=== PATIENT | male | born 1940 | race Caucasian/White ===

== ENCOUNTER 2020-08-22 07:18 | Outpatient (CLI) | payer MEDICARE, OTHER, SELFPAY ==
--- NOTE | 2020-08-22 07:44 | XR_ITS ---
WS: [id number] XR chest 2V* [id number] REASON FOR EXAM: CHRONIC BRONCHITIS FINDINGS: Moderately ectatic and tortuous thoracic aorta. Normal heart size. No active pulmonary parenchymal pleural disease. Degenerative spondylosis in the mid thoracic spine. XR/XR chest 2V* [id number] IMPRESSION: No acute chest abnormality.
== END 2020-08-22 07:19 | disposition home or self-care (01) ==
LOC: RAD 07:37
PROVIDERS: PCP Electrodiagnostic Medicine; Visit Provider Electrodiagnostic Medicine
DX: J42 Unspecified chronic bronchitis (principal)
CPT/HCPCS: 71046

== ENCOUNTER 2020-09-26 07:05 | Outpatient (CLI) | payer MEDICARE, OTHER, SELFPAY ==
--- NOTE | 2020-09-26 07:44 | US_ITS ---
WS: [id number] THYROID ULTRASOUND REASON FOR EXAM: GRAVE'S DZ/CHRONIC HOARSENESS/HYPOTHYROIDISM TECHNIQUE: Grayscale and Doppler ultrasound examination of the thyroid gland. FINDINGS: Both lobes of the thyroid are extremely small and heterogeneous without focal lesion. RIGHT: Right thyroid gland measures 3.5 cm x 1.5 cm x 0.9 cm. Right thyroid volume equals 2.6 ccm3. LEFT: Left thyroid gland measures 2.3 cm x 1.3 cm x 1.0 cm. Left thyroid volume equals 1.5 ccm3. Thyroid isthmus: 0.2 mm. Several lymph nodes are identified within the neck. None of these nodes measures more than a centimet er in short or long axis. Several of them demonstrate sinus fat. US/US thyroid [id number] IMPRESSION: The thyroid gland appearance is not that of Graves' disease unless posttreatmen t by radionuclide. The appearance can also be seen post Preeti's thyroiditis . The lymph nodes are nonspecific, most likely old reactive nodes.
== END 2020-09-26 07:06 | disposition home or self-care (01) ==
LOC: US 07:06
PROVIDERS: PCP Electrodiagnostic Medicine; Visit Provider Electrodiagnostic Medicine
DX: E05.00 Thyrotoxicosis with diffuse goiter without thyrotoxic crisis or storm (principal); R49.0 Dysphonia; E03.9 Hypothyroidism, unspecified
CPT/HCPCS: 76536

== ENCOUNTER 2021-05-10 16:07 | Outpatient (CLI) | payer MEDICARE, OTHER, SELFPAY ==
--- NOTE | 2021-05-10 | XR_ITS ---
WS: [id number] Chest 2 views, 05/10/2021 Clinical Data: DYSPNEA Comparison: PA and lateral chest, 08/22/2020. Findings: No nodules, masses or effusions are seen. The heart is normal. The pulmonary vascularity is not increased. No pneumonia or pneumothorax is seen. The aortic arch and descending aorta show calci fication and tortuosity. XR/XR chest 2V* [id number] Impression: Atherosclerosis.
== END 2021-05-10 16:08 | disposition home or self-care (01) ==
LOC: RAD 16:15
PROVIDERS: PCP Electrodiagnostic Medicine; Visit Provider Electrodiagnostic Medicine
DX: R06.00 Dyspnea, unspecified (principal); I70.90 Unspecified atherosclerosis
CPT/HCPCS: 71046

== ENCOUNTER → 2021-08-03 11:40 | Outpatient (BNVA) | payer MEDICARE, OTHER, SELFPAY | PROVIDERS: PCP Electrodiagnostic Medicine; Visit Provider Electrodiagnostic Medicine | DX: Z01.812 Encounter for preprocedural laboratory examination (principal); Z20.822 Contact with and (suspected) exposure to COVID-19 | CPT/HCPCS: 87635 ==

== ENCOUNTER 2021-08-09 07:22 | Outpatient (CLI) | payer MEDICARE, OTHER, SELFPAY ==
--- NOTE | 2021-08-09 09:30 | PFTS_ITS ---
Date of Study:08/09/21 Date of Dictation: MECHANICS: Forced vital capacity (FVC) is normal. Forced expiratory volume in one second (FEV1) is normal. FEV1/FVC is normal. FLOW VOLUME LOOP: Normal. LUNG VOLUMES: Total lung capacity (TLC) is normal. Residual volume (RV) is normal. DIFFUSING CAPACITY FOR CARBON MONOXIDE: Normal. INTERPRETATION: The pulmonary function tests are normal. MTDD
== END 2021-08-09 07:23 | disposition home or self-care (01) ==
PROVIDERS: PCP Electrodiagnostic Medicine; Visit Provider Electrodiagnostic Medicine
DX: R06.00 Dyspnea, unspecified (principal); R49.0 Dysphonia; J42 Unspecified chronic bronchitis; E03.9 Hypothyroidism, unspecified
CPT/HCPCS: 94010; 94726; 94729

== ENCOUNTER 2021-08-14 10:09 | Outpatient (CLI) | payer MEDICARE, OTHER, SELFPAY ==
--- NOTE | 2021-08-14 10:16 | XR_ITS ---
WS: [id number] FOOT LEFT TECHNIQUE: 3 views of the left foot CLINICAL INFORMATION: FOOT PAIN,LEFT COMPARISON: None. FINDINGS: No evidence of acute fracture or dislocation. Normal tarsal metatarsal alignment. Normal calcaneus. N ormal visualized talar dome. Small plantar calcaneal spur. Osteopenia. Vascular calcification. XR/XR foot LT min 3V* [id number] IMPRESSION: Osteopenia. No visualized fractures.
== END 2021-08-14 10:10 | disposition home or self-care (01) ==
PROVIDERS: PCP Electrodiagnostic Medicine; Visit Provider Electrodiagnostic Medicine
DX: M79.672 Pain in left foot (principal); M85.872 Other specified disorders of bone density and structure, left ankle and foot
CPT/HCPCS: 73630

== ENCOUNTER 2021-09-13 14:14 | Outpatient (CLI) | payer MEDICARE, OTHER, SELFPAY ==
--- NOTE | 2021-09-13 | CT_ITS ---
WS: [id number] CT CHEST TECHNIQUE: Noncontrast CT of the chest with coronal and sagittal reformatted images. CLINICAL INFORMATION: DYSPNEA, HOARSENESS COMPARISON: None. DLP: 897.[address] scans at [facility] use at least one of these dose optimization techniques: automated e xposure control; mA and/or kV adjustment per patient size (includes targeted exams where dose is matc hed to clinical indication); or iterative reconstruction. FINDINGS: Lungs are well aerated. No acute pulmonary infiltrates. No focal pneumonia or pleural fluid. Tiny non calcified nodule left upper lobe measuring 3 mm. Tiny noncalcified nodule right upper lobe measuring 2 mm. 2 mm noncalcified nodule right middle lobe. Normal caliber thoracic aorta. Aortic calcification. Calcified right hilar nodes. No mediastinal or h ilar lymphadenopathy. Adrenal glands are normal. Fatty atrophy of the pancreas. Normal GE junction. Hypertrophic changes th oracic spine. CT/CT chest wo con [id number] IMPRESSION: 1. A few tiny noncalcified pulmonary nodules largest in the left upper lobe me asuring 3 mm. Recommend 12 month follow-up. 2. No acute pulmonary infiltrates. No focal pneumonia or pleural fluid. 3. No mediastinal or hilar lymphadenopathy. 4. No other significant findings.
== END 2021-09-13 14:15 | disposition home or self-care (01) ==
PROVIDERS: PCP Electrodiagnostic Medicine; Visit Provider Electrodiagnostic Medicine
DX: R06.02 Shortness of breath (principal); R49.0 Dysphonia; J42 Unspecified chronic bronchitis; E03.9 Hypothyroidism, unspecified; R91.8 Other nonspecific abnormal finding of lung field
CPT/HCPCS: 71250

== ENCOUNTER 2021-10-02 14:21 | Emergency (ER) | payer MEDICARE, OTHER, SELFPAY ==
--- NOTE | 2021-10-02 14:36 | W.ED.NEUROSD ---
HPI - Neuro Symptoms/Deficit General: Chief Complaint: Neuro Symptoms/Deficit Stated Complaint: Neuro sx: Diff speech, sent by Dr Velasquez Time Seen by Provider: 10/02/21 14:35 History of Present Illness: HPI Narrative: Mr. Inman is an 81-year-old gentleman with significant past medical history of hypertension, hyperlipidemia, hypothyroidism presents emergency department due to strokelike symptoms which have now nearly resolved. He has felt his baseline health and had sudden onset of speech difficulty which he describes as difficulty getting the words out approximately 1 hour prior to coming to the emergency department. At that time he was sitting at the table, there was no specific precipitating event. He denies other symptoms including headache or other neurologic changes. This was moderate to severe in intensity. He reports that his symptoms of about 85% improved. Review of Systems General: Reports: 10 or more systems reviewed and unremarkable except in HPI and below Physical Exam Narrative: EXAM NARRATIVE: GENERAL/CONSTITUTIONAL - well-appearing. No acute distress. Eyes - PERRL, no conjunctival injection ENMT - Atraumatic external nose and ears. Moist mucous membranes NECK - supple. trachea midline CARDIOVASCULAR - regular rate and rhythm. RESPIRATORY -clear to auscultation bilaterally. ABDOMEN/GI - Nontender/Nondistended. MSK - Extremities without obvious deformity or tenderness to palpation SKIN - Warm, Dry NEURO - alert and appropriately oriented. Cranial nerves II through XII intact. No appreciable speech abnormality. Strength and sensation intact. Moves all extremities equally. NIHSS 0 PSYCH - Appropriate mood and affect Course ED course: - Patient was seen and evaluated by me at bedside - Patient placed on cardiac monitors, IV access obtained - Initial evaluation notable for no acute distress, nontoxic appearance. NIHSS 0 - Labs notable for no acute abnormality to explain patient's symptoms. - Imaging notable for negative head CT, CTA without LVO or marked disease - Upon serial reexamination after treatment the patient was similar without development of new symptoms or recurrence - Discussed with neurology on-call - Based on patient history, evaluation, labs, and imaging as interpreted the most likely cause of the patient's condition is TIA - The results of ED evaluation were discussed with the patient including prescriptions and/or symptomatic cares (if applicable) including appropriate and responsible use, followup plan, and return precautions. The patient verbalized understanding and felt safe for discharge. - Patient discharged in satisfactory condition. Vital Signs: Vital signs: Vital Signs Temperature 98.5 F 11/16/21 15:10 Pulse Rate 75 10/02/21 20:54 Respiratory Rate 18 10/02/21 20:54 Blood Pressure 134/80 10/02/21 20:54 Pulse Oximetry 99 10/02/21 20:54 MDM - Neuro Symptoms/Deficit Medical Records: Attestation: I reviewed the patient's medical records. Lab Data: Attestation: I reviewed the patient's lab results. Labs: Lab Results 10/02/21 10/02/21 10/02/21 15:30 15:30 15:30 WBC 8.9 10^3/uL 10^3/ uL (4.0-10.0) RBC 5.40 10^6/uL H 10 ^6/uL (4.1-5.3) Hgb 15.7 g/dL g/dL (11.7-16.6) Hct 47.0 % % (42.0-52.0) MCV 87.0 fl fl (80-94) MCH 29.1 pg pg (28.0-34.0) MCHC 33.4 g/dL g/dL (30.0-36.0) RDW 15.8 % H % (12.1-15.1) Plt Count 225 10^3/cmm 10^3 /cmm (130-400) MPV 10.1 fL fL (7.4-10.4) Neut % (Auto) 61.6 % % Lymph % (Auto) 23.8 % % [place] % (Auto) 9.6 % % Eos % (Auto) 3.7 % % Baso % (Auto) 0.9 % % Neut # (Auto) 5.49 10^3/uL 10^3 /uL (1.8-7.7) Lymph # (Auto) 2.1 10^3/uL 10^3/ uL (0.8-4.8) [place] # (Auto) 0.9 10^3/uL 10^3/ uL (0.2-0.9) Eos # (Auto) 0.3 10^3/uL 10^3/ uL (0.0-0.8) Baso # (Auto) 0.1 10^3/uL 10^3/ uL (0.0-0.1) Nucleated RBC % (a uto) 0 % % Nucleated RBCs # 0.0 /100WBC /100W BC PT 12.60 SECONDS SEC ONDS (12.1-14.9) INR 0.91 (0.8-1.2) APTT 27.9 SECONDS SECO NDS (23.9-36.7) Sodium 138 mmol/L mmol/L (136-145) Potassium 3.4 mmol/L L mmol /L (3.5-5.1) Chloride 102 mmol/L mmol/L (98-107) Carbon Dioxide 21 mmol/L L mmol/ L (22-29) Anion Gap 18.4 (5-19) BUN 19 mg/dL mg/dL (8-23) Creatinine 1.3 mg/dL H mg/dL (0.7-1.2) GFR Calculation Not Reportable Glucose 109 mg/dL mg/dL (65-115) Calculated Osmolal ity 289 mOsm/kg mOsm/ kg (285-295) Calcium 9.0 mg/dL mg/dL (8.5-10.5) Total Bilirubin 0.3 mg/dL mg/dL (0.15-1.2) AST 19 U/L U/L (0-40) ALT 23 U/L U/L (0-41) Alkaline Phosphata se 53 IU/L IU/L (40-130) Total Protein 6.9 g/dL g/dL (6.6-8.7) Albumin 4.1 g/dL g/dL (3.5-5.2) Globulin 2.8 g/dL g/dL (1.3-4.6) TSH 3.15 uIU/mL uIU/m L (0.27-4.20) Urine Color Urine Appearance Urine pH Ur Specific Gravit y Urine Protein Urine Glucose (UA) Urine Ketones Urine Blood Urine Nitrate Urine Bilirubin Urine Urobilinogen Ur Leukocyte Leyla ase 10/02/21 15:30 WBC RBC Hgb Hct MCV MCH MCHC RDW Plt Count MPV Neut % (Auto) Lymph % (Auto) [place] % (Auto) Eos % (Auto) Baso % (Auto) Neut # (Auto) Lymph # (Auto) [place] # (Auto) Eos # (Auto) Baso # (Auto) Nucleated RBC % (a uto) Nucleated RBCs # PT INR APTT Sodium Potassium Chloride Carbon Dioxide Anion Gap BUN Creatinine GFR Calculation Glucose Calculated Osmolal ity Calcium Total Bilirubin AST ALT Alkaline Phosphata se Total Protein Albumin Globulin TSH Urine Color Yellow (Yellow) Urine Appearance Clear (CLEAR) Urine pH 5 (5-7) Ur Specific Gravit y 1.015 (1.005-1.030) Urine Protein Neg (Negative) Urine Glucose (UA) Norm (Normal) Urine Ketones Negative (Negative) Urine Blood Neg (Negative) Urine Nitrate Negative (Negative) Urine Bilirubin Neg (Negative) Urine Urobilinogen Norm mg/dL mg/dL (Negative) Ur Leukocyte Leyla ase Negative (Negative) EKG Data^: EKG 1: Attestation: I personally reviewed and interpreted this EKG as follows: EKG interpretation date: 10/02/20 EKG interpretation time: 19:53 Interpretation: Twelve-lead EKG shows a regular rhythm at a rate of 60. NJ interval 213, QRS duration 105, QTc 400. Left axis deviation. Interpretation: Sinus rhythm. First-degree AV block. Interventricular conduction delay. Discharge Plan Discharge Patient Disposition: Home Clinical Impression: TIA (transient ischemic attack) Condition: Stable Prescriptions: New aspirin 81 mg tablet,delayed release (DR/EC) 81 mg PO DAILY Qty: 30 RF: 0 Plavix 75 mg tablet 75 mg PO DAILY Qty: 30 RF: 0 No Action losartan 50 mg tablet 50 mg PO DAILY RF: 0 garlic 100 mg Tablet 100 mg PO DAILY RF: 0 Glucosamine 500 mg Tablet 500 mg PO DAILY RF: 0 allopurinol 100 mg tablet 100 mg PO DAILY RF: 0 omeprazole 40 mg capsule,delayed release(DR/EC) 40 mg PO DAILY RF: 0 simvastatin 40 mg tablet 40 mg PO DAILY RF: 0 Euthyrox 88 mcg tablet 88 mcg PO DAILY RF: 0 hydrochlorothiazide 25 mg tablet 25 mg PO DAILY RF: 0 Vitamin B-12 25 mcg Tablet 25 mcg PO EVERY OTHER DAY RF: 0 Tart Oneal [id number] mg Capsule 1 cap PO DAILY RF: 0 coenzyme Q10 50 mg Tablet 50 mg PO DAILY RF: 0 Discharge Orders: Discharge ED (Routine); Ordered 10/02/21 Ordered By: David Hein Referrals: Jose Velasquez DO [Primary Care Provider] - Discharge Diet: Usual diet Discharge Activity: Resume usual activity Patient Instructions: Transient Ischemic Attack (ED) Activity Restrictions/Additional Instructions: Thank you for visiting the emergency department. You were seen and evaluated for strokelike symptoms. These have resolved and you likely had a transient ischemic attack. You will be started on aspirin and Plavix. Please take these daily. Please follow-up with neurology. Please return to the emergency department for recurrent symptoms, new neurologic symptoms such as numbness, tingling, gait problems, weakness, or anything else that you are concerned about and feel needs emergency department evaluation. 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
[2021-10-02 14:45] VITALS: BP 138/82; PULSE 72; RESP 18; O2SAT 95
--- NOTE | 2021-10-02 14:54 | CT_ITS ---
WS: [id number] [facility] [id number] Date/Time of Exam: 10/02/2021 3:25 PM Reason For Exam: stroke like symptoms, dysarthria DLP: 2240.[address] scans at [facility] use at least one of these dose optimization techniques: automated e xposure control; mA and/or kV adjustment per patient size (includes targeted exams where dose is matc hed to clinical indication); or iterative reconstruction. CTA of the head and neck. CTA of the neck. The right and left common and extracranial internal carotid arteries are patent. There is moderate ca lcification at the left carotid bifurcation but no critical stenosis was noted. No dissection or aneu rysm is demonstrated. Advanced emphysematous changes and groundglass densities are seen in the upper lung zones. The great vessels appear to be patent at the level of the aortic arch. No neck mass or lymphadenopathy is seen. The airway is patent. Mucosal thickening in the bilateral ma xillary sinuses. Advanced degenerative changes in the cervical spine. CT[facility] [id number] IMPRESSION: 1. The right and left common and extracranial internal carotid arteries are pat ent. No critical stenosis, dissection or aneurysm. 2. Moderate atherosclerotic plaquing at the left carotid bulb but no critical s tenosis CTA of the head. The intracranial internal carotid arteries are widely patent without critical s tenosis or occlusion. The anterior, middle and posterior cerebral arteries are also patent. No sign of the aneurysm or acute bleed. Images of the brain demons trate no mass or acute hemorrhage. Normal size ventricles and basal cisterns. N o extra-axial fluid collections. The skull is intact. Mastoids and facial sinus es were clear. IMPRESSION: 1. The intracranial internal carotid arteries are patent without critical steno sis or occlusion. No aneurysm or acute bleed.
--- NOTE | 2021-10-02 14:54 | CT_ITS ---
WS: [id number] Exam: CT head wo con* [id number] Date/Time of Exam: 10/02/2021 3:25 PM Reason For Exam: stroke like symptoms, dysarthria DLP: 1027.[address] scans at [facility] use at least one of these dose optimization techniques: automated e xposure control; mA and/or kV adjustment per patient size (includes targeted exams where dose is matc hed to clinical indication); or iterative reconstruction. No sign of acute intracranial bleed or space-occupying mass. The ventricles and basal cisterns are no rmal in size. No extra-axial fluid collections. Mild diffuse atrophy. The skull is intact. The mastoi ds are clear. Trace amount of fluid in the left ethmoid sinuses. Remaining facial sinuses are clear. CT/CT head wo con* [id number] IMPRESSION: 1. No acute intracranial process.
--- NOTE | 2021-10-02 14:54 | XR_ITS ---
WS: [id number] Exam: XR chest 1V portable [id number] Date/Time of Exam: 10/02/2021 2:54 PM Reason For Exam: stroke like symptoms Comparison 05/10/2021. The lungs are clear and fully inflated. Normal cardiomediastinal structures. Pl aque atelectasis in the left base. Bony structures appear normal. XR/XR chest 1V portable [id number] IMPRESSION: 1. No acute cardiopulmonary finding.
[2021-10-02 15:10] VITALS: BP 142/80; PULSE 66; RESP 17; TEMP 36.9; O2SAT 95
[2021-10-02 15:37] LABS: Add Urine Microscopic? NO; Charge for UA Resulting for Rev
[2021-10-02] MEDS: iodixanol 320 mg/mL 100mL Btl IV (15:41)
[2021-10-02 15:50] LABS: Basophils # 0.1 10^3/uL (0.0-0.1); Basophils % 0.9 %; Eosinophils # 0.3 10^3/uL (0.0-0.8); Eosinophils % 3.7 %; Hemoglobin 15.7 g/dL (11.7-16.6); Lymphocytes # 2.1 10^3/uL (0.8-4.8); Lymphocytes % 23.8 %; Mean Corpuscular HGB Conc 33.4 g/dL (30.0-36.0); Mean Corpuscular Hemoglobin 29.1 pg (28.0-34.0); Mean Platelet Volume 10.1 fL (7.4-10.4); Monocytes # 0.9 10^3/uL (0.2-0.9); Monocytes % 9.6 %; Neutrophils # 5.49 10^3/uL (1.8-7.7); Neutrophils % 61.6 %; Nucleated Red Blood Cells % 0 %; Platelet Count 225 10^3/cmm (130-400); Red Cell Distribution Width 15.8 % (12.1-15.1); White Blood Count 8.9 10^3/uL (4.0-10.0)
[2021-10-02 16:10] LABS: Bilirubin Urine Neg (Negative); Blood Urine Neg (Negative); Glucose Urine UA Norm (Normal); Ketones Urine Negative (Negative); Leukocyte Esterase Urine Negative (Negative); Nitrate Urine Negative (Negative); Protein Urine Neg (Negative); Specific Gravity, Urine 1.015 (1.005-1.030); Urine Appearance Clear (CLEAR); Urine Color Yellow (Yellow); Urobilinogen Urine Norm (Negative); pH Urine 5 (5-7)
[2021-10-02 16:28] LABS: Alanine Aminotransferase 23 U/L (0-41); Albumin Level 4.1 g/dL (3.5-5.2); Alkaline Phosphatase 53 IU/L (40-130); Aspartate Amino Transferase 19 U/L (0-40); Blood Urea Nitrogen 19 mg/dL (8-23); Carbon Dioxide 21 mmol/L (22-29); Chloride 102 mmol/L (98-107); Globulin 2.8 g/dL (1.3-4.6); Glucose 109 mg/dL (65-115); Osmolality Calculated 289 mOsm/kg (285-295); Sodium 138 mmol/L (136-145); Thyroid Stimulating Hormone 3.15 uIU/mL (0.27-4.20); Total Bilirubin 0.3 mg/dL (0.15-1.2); Total Protein 6.9 g/dL (6.6-8.7)
[2021-10-02 16:31] LABS: Anion Gap 18.4 (5-19); Potassium 3.4 mmol/L (3.5-5.1)
[2021-10-02 16:48] VITALS: BP 112/73; PULSE 62; RESP 23; O2SAT 94
[2021-10-02 16:48] LABS: INR 0.91 (0.8-1.2)
[2021-10-02 16:49] LABS: Partial Thromboplastin Time 27.9 SECONDS (23.9-36.7)
[2021-10-02 17:51] VITALS: BP 118/89; PULSE 70; RESP 15; O2SAT 94
--- NOTE | 2021-10-02 18:57 | ECG_ITS ---
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 Measurements Intervals [place] Rate: 60 P: 30 CA: 213 QRS: -46 QRSD: 105 T: 36 QT: 399 QTc: 400 Interpretive Statements SINUS RHYTHM WITH FIRST DEGREE AV BLOCK PATTERN CONSISTENT WITH PULMONARY DISEASE INCOMPLETE RIGHT BUNDLE BRANCH BLOCK [90+ ms QRS DURATION, TERMINAL R IN V1/V2, 40+ ms S IN I/aVL/V4/V5/V6] LEFT ANTERIOR FASCICULAR BLOCK [QRS AXIS <= -45, QR IN I, RS IN II] No previous ECG available for comparison Electronically Signed On 10-03-2021 22:48:56 PHOTOCOPYING EQUIPMENT REPAIRER by Will Gutierrez M.D. [id number]
[2021-10-02 19:20] VITALS: BP 124/87; PULSE 64; RESP 20; O2SAT 95
[2021-10-02] MEDS: clopidogrel 300 mg Tablet PO (20:42)
[2021-10-02 20:54] VITALS: BP 134/80; PULSE 75; RESP 18; O2SAT 99
--- NOTE | 2021-10-03 09:51 | DCPLANNER ---
club manager had message to schedule a follow up appointment for patient with neurology. club manager emailed patients information to the neurology clinic. Patients information will be printed and reviewed. Clinic will call patient with appointment information.
--- NOTE | 2021-10-04 14:35 | DCPLANNER ---
Patient has a follow up appointment scheduled for Friday, October 10, 2021 at 8:30 with Wilber Montaño neurology. Clinic will call patient with appointment information.
--- NOTE | 2021-12-09 16:32 | DCPLANNER ---
Patient had a follow up appointment scheduled with neurology - patient did attend appointment.
== END 2021-10-02 20:55 | disposition home or self-care (01) ==
PROVIDERS: Emergency Provider Emergency Medicine; PCP Electrodiagnostic Medicine
DX: G45.9 Transient cerebral ischemic attack, unspecified (principal); I10 Essential (primary) hypertension; E78.5 Hyperlipidemia, unspecified
CPT/HCPCS: 70450; 70496; 70498; 71045; 80053; 81003; 84443; 85025; 85610; 85730; 93005; 99284; Q9967

== ENCOUNTER → 2021-10-10 08:16 | Outpatient (BNVA) | payer MEDICARE, OTHER, SELFPAY | PROVIDERS: PCP Electrodiagnostic Medicine; Visit Provider Nurse Practitioner | DX: E78.5 Hyperlipidemia, unspecified (principal); Z86.73 Personal history of transient ischemic attack (TIA), and cerebral infarction without residual deficits | CPT/HCPCS: 99204 ==

== ENCOUNTER 2021-10-18 07:28 | Outpatient (CLI) | payer MEDICARE, OTHER, SELFPAY ==
[2021-10-18 07:45] VITALS: BMI 28.1
--- NOTE | 2021-10-18 07:46 | ECG_ITS ---
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 Interpretive Statements NAME OF STUDY: LEXISCAN SESTAMIBI STRESS TEST INDICATION: Chest Pain, SOB PROCEDURE: At the baseline, the blood pressure was 151/108 mmHg, oxygen saturation 95% with a heart rate of 59 bpm. The electrocardiogram showed normal sinus rhythm, left axis deviation. Nonspecific T wave changes. ??? The Lexiscan was infused over a period of 20 seconds. A total of 0.4 milligrams of Lexiscan was infused. The stress phase was continued for a total of 5 minutes. Heart rate at the end of the stress phase was 79 bpm, oxygen saturation 94% with a blood pressure of 135/81 mm Hg. The EKG at the peak infusion revealed sinus rhythm with no significant ST-T wave changes. The study was terminated to protocol completion. ??? Sestamibi was injected 20 seconds after the Lexiscan infusion. ??? Blood pressure at the end of the recovery phase was 157/90 mmHg, oxygen saturation 85% with a heart rate of 76 beats per minute. ??? CONCLUSION: 1. No significant EKG changes with the LexiScan infusion. 2. No LexiScan induced chest pain or cardiac arrhythmia. 3. Normal blood pressure and heart rate response. 4. Sestamibi/sestamibi perfusion scan pending; see separate report. Electronically Signed On 10-22-2021 18:51:55 PEN TENDER by Clarisa Farfan M.D. [id number]
--- NOTE | 2021-10-18 07:47 | NMCV_ITS ---
NM alva perf SPECT r/s* [id number] Herbie Inman Age: 81 Gender: M : 1940 Exam Date: 10/18/2021 07:47 Ordering Phys: Jose Velasquez DO Technologist: KEITH Mccormick Exam Location: [facility] Indications: CHEST PAIN STRESS TEST Please see separate stress test report in [facility] for full findings IMAGE PROTOCOL Rest/Stress 1 Lexiscan Day Radiopharmaceutical Dose (mCi) Administration Site Administered by Rest: Tc-99m 10.5 IV KEITH Mccormick Sestamibi Stress:Tc-99m 32.7 IV KEITH Oleary Sestamibi Rest: 18-Oct-2021 60 Discovery 630 Stress: 18-Oct-2021 30 Discovery 630 0.4mg Lexiscan. Images obtained in supine and prone position. SPECT RESULTS Technical Quality: Excellent Raw Data Analysis: Normal Image Corrections: No attenuation or motion correction applied Summed Stress Score: 1 Summed Rest Score: 1 Summed Difference Score: 1 PERFUSION FINDINGS Small sized perfusion abnormality of mild severity of apical lateral wall on stress images. FUNCTIONAL RESULTS (calculated via Gated SPECT) Stress Image LV EF (%): 74 Stress EDV (mL):76 TID: 0.88 Stress ESV (mL):20 FUNCTIONAL FINDINGS: The left ventricle is normal in size. Transient Ischemia Dilatation of 0.88. There is normal left ventricular systolic function. The left ventricular ejection fraction is normal with a value of 74%. There is normal left ventricular wall thickening with no regional wall motion abnormality. Normal end diastolic and end systolic volumes. IMPRESSIONS 1. Small sized perfusion abnormality of mild severity of apical lateral wall. 2. This may represent attenuation artifact. However, small area of ischemia in left anterior descending artery territory cannot be completely ruled out. 3. Overall left ventricular systolic function is normal without regional wall motion abnormalities, LVEF=74%. 4. No prior similar studies to compare. Clarisa Farfan MD (Electronically Signed) Final Date: 20 October 2021 17:52 S
[2021-10-18] MEDS: regadenoson 0.4 Mg/5 ml Syringe IVP (09:29)
[2021-10-18 09:39] VITALS: BP 157/90; PULSE 84
== END 2021-10-18 07:29 | disposition home or self-care (01) ==
LOC: CDL 07:29
PROVIDERS: PCP Electrodiagnostic Medicine; Visit Provider Electrodiagnostic Medicine
DX: R07.9 Chest pain, unspecified (principal); R06.00 Dyspnea, unspecified; R06.02 Shortness of breath
CPT/HCPCS: 78452; 93017; A9500; J2785

== ENCOUNTER 2021-11-26 14:50 | Outpatient (CLI) | payer MEDICARE, OTHER, SELFPAY ==
--- NOTE | 2021-11-26 15:15 | MR_ITS ---
WS: [id number] MRI HEAD WITHOUT CONTRAST TECHNIQUE: Sagittal T1, T2 axial, T2 axial FLAIR, axial and coronal T1 images, axial susceptibility w eighted imaging, axial diffusion weighted images, and coronal T2 images were obtained. CLINICAL INFORMATION: I99.8 - Other disorder of circulatory system COMPARISON: CT and CTA October 02, 2021 FINDINGS: No evidence of restricted diffusion to suggest acute ischemia. Ventricular system and basal cisterns are patent. Mild small vessel changes with moderate parenchymal volume loss. Normal posterior fossa. Normal vascular flow voids at the skull base. No extra-axial fluid collections. No evidence of mass o r mass effect. Paranasal sinuses are well aerated. Mucosal thickening right mastoid tip. Left mastoid air cells are well aerated. Small vessel changes in the midbrain. 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 No he mosiderin on the susceptibility weighted imaging. Normal optic chiasm and pituitary infundibulum. Mil d to moderate symmetric atrophy temporal lobes and hippocampal formations. Normal cavernous sinuses a nd Meckel's cave. MR/MR head wo con* [id number] IMPRESSION: 1. No evidence of restricted diffusion to suggest acute ischemia. 2. Mild small vessel changes with moderate parenchymal volume loss. 3. 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 4. Mild to moderate symmetric atrophy temporal lobes and hippocampal formation s. 5. Partial opacification right mastoid tip.
== END 2021-11-26 14:51 | disposition home or self-care (01) ==
LOC: RADSHAW 14:56
PROVIDERS: PCP Electrodiagnostic Medicine; Visit Provider Nurse Practitioner
DX: I99.8 Other disorder of circulatory system (principal); G31.9 Degenerative disease of nervous system, unspecified; I63.9 Cerebral infarction, unspecified
CPT/HCPCS: 70551

== ENCOUNTER 2021-12-13 12:38 | Outpatient (CLI) | payer MEDICARE, OTHER, SELFPAY ==
--- NOTE | 2021-12-13 12:45 | USCV_ITS ---
Herbie Inman Age: 81 Gender: M : 1940 Exam Date: 12/13/2021 13:04 Ordering Phys: Wilber MontañoP MSN AGACNP-BC Technologist: MILY Exam Location: [facility] [place] Indication: TIA BP: 118 / 64 HR: 73 Rhythm: Sinus Technical Quality: Adequate MEASUREMENTS (Male / Female) Normal Values 2D ECHO LV Diastolic Diameter PLAX 4.0 cm 4.2 - 5.9 / 3.9 - 5.3 cm LV Systolic Diameter PLAX 2.7 cm IVS Diastolic Thickness 1.1 cm 0.6 - 1.0 / 0.6 - 0.9 cm IVS Systolic Thickness 1.3 cm LVPW Diastolic Thickness 1.2 cm 0.6 - 1.0 / 0.6 - 0.9 cm LVPW Systolic Thickness 1.7 cm LVOT Diameter 2.0 cm LV Ejection Fraction 2D Teich 60.1 % LV Ejection Fraction MOD 2C 57.6 % LV Ejection Fraction 2C AL 56.7 % LA Diameter 3.0 cm Aorta at Sinotubular Diameter 2.7 cm M-MODE Aortic Annulus Diameter 2.8 cm LA Ao Ratio MM 1.2 MV E Point Septal Separation 0.6 cm DOPPLER AV Peak Velocity 110.0 cm/s LVOT Peak Velocity 93.0 cm/s AV Area Cont Eq vti 2.3 cm squared AV Area Cont Eq pk 2.7 cm squared MV Area PHT 5.9 cm squared Mitral E to A Ratio 0.6 MV E' Velocity 26.0 cm/s Mitral E to MV E' Ratio 5.0 Mitral E to LV E' Lateral Ratio 4.2 Mitral E to LV E' Septal Ratio 6.3 TV Peak E Velocity 60.0 cm/s PV Peak Velocity 132.0 cm/s RV Acceleration Time 0.2 s RV Ejection Time 0.3 s RV AcT/ET 0.5 FINDINGS Left Ventricle Normal left ventricular size and systolic function, EF 58 %. No regional wall motion abnormalities. Mild left ventricular hypertrophy. Grade I/IV diastolic dysfunction (abnormal relaxation filling pattern), normal to mildly elevated filling pressures. Right Ventricle Normal right ventricular size and systolic function. Right Atrium The right atrium is normal in size. Left Atrium The left atrium is normal in size. Mitral Valve Thickened mitral valve. Aortic Valve Thickened aortic valve. Tricuspid Valve No gross abnormalities noted Pulmonic Valve Trace pulmonary valve regurgitation. Pericardium Normal pericardium without effusion. Aorta Normal ascending aorta dimension. CONCLUSIONS Normal left ventricular size and systolic function, EF 58 %. No regional wall motion abnormalities. Mild left ventricular hypertrophy. Grade I/IV diastolic dysfunction (abnormal relaxation filling pattern), normal to mildly elevated filling pressures. Minimally thickened aortic and mitral valves. Trace pulmonary valve regurgitation. No significant stenotic valvular lesions. No definite intracardiac masses note. No previous study is available for comparison. Dr Will Gutierrez MD FACC (Electronically Signed) Final Date: 14 December 2021 00:05 S
== END 2021-12-13 12:39 | disposition home or self-care (01) ==
LOC: RAD 12:42
PROVIDERS: PCP Electrodiagnostic Medicine; Visit Provider Nurse Practitioner
DX: I99.8 Other disorder of circulatory system (principal)
CPT/HCPCS: 93306

== ENCOUNTER 2022-10-25 22:23 | Emergency (ER) | payer MEDICARE, OTHER, SELFPAY ==
--- NOTE | 2022-10-25 22:27 | XRR_ITS ---
PROCEDURE INFORMATION: Exam: XR Chest Exam date and time: 10/25/2022 10:47 PM Age: 82 years old Clinical indication: Pain; Chest pressure; Additional info: Cp TECHNIQUE: Imaging protocol: Radiologic exam of the chest. Views: 1 view. COMPARISON: CR XR chest 1V portable [id number] 10/02/2021 3:01 PM FINDINGS: Lungs: Unremarkable. No consolidation. Pleural spaces: Unremarkable. No pleural effusion. No pneumothorax. Heart/Mediastinum: Unremarkable. No cardiomegaly. Bones/joints: Unremarkable. XR/XR chest 1V portable [id number] IMPRESSION: No acute findings.
--- NOTE | 2022-10-25 22:27 | ECG_ITS ---
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 Measurements Intervals [place] Rate: 71 P: -33 FL: 168 QRS: -43 QRSD: 109 T: 53 QT: 361 QTc: 393 Interpretive Statements SINUS RHYTHM LEFT AXIS DEVIATION [QRS AXIS < -30] PATTERN CONSISTENT WITH PULMONARY DISEASE Compared to ECG 10/02/2021 19:45:41 Left-axis deviation now present First degree AV block no longer present Incomplete right bundle-branch block no longer present Left anterior fascicular block no longer present Electronically Signed On 11-06-2022 9:53:50 PROGRAM DIRECTOR AIR TALENT by Chino Posada M.D. [id number]
[2022-10-25 22:33] VITALS: BP 149/79; PULSE 71; RESP 16; TEMP 36.8; O2SAT 96
--- NOTE | 2022-10-26 00:44 | ECG_ITS ---
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 Measurements Intervals [place] Rate: 65 P: 38 MD: 203 QRS: -36 QRSD: 105 T: 45 QT: 367 QTc: 383 Interpretive Statements SINUS RHYTHM LEFT AXIS DEVIATION [QRS AXIS < -30] LOW QRS VOLTAGE IN PRECORDIAL LEADS [QRS DEFLECTION < 1.0 mV IN CHEST LEADS] PATTERN CONSISTENT WITH PULMONARY DISEASE Compared to ECG 10/02/2021 19:45:41 Left-axis deviation now present Low QRS voltage now present First degree AV block no longer present Incomplete right bundle-branch block no longer present Left anterior fascicular block no longer present Electronically Signed On 10-26-2022 16:45:38 WATER CHASER by Mauricio Yap M.D. [id number]
[2022-10-26 01:18] LABS: Basophils # 0.1 10^3/uL (0.0-0.1); Basophils % 0.7 %; Eosinophils # 0.4 10^3/uL (0.0-0.8); Hematocrit 46.1 % (42.0-52.0); Hemoglobin 15.3 g/dL (11.7-16.6); Lymphocytes # 1.5 10^3/uL (0.8-4.8); Lymphocytes % 21.6 %; Mean Corpuscular HGB Conc 33.2 g/dL (30.0-36.0); Mean Corpuscular Hemoglobin 28.5 pg (28.0-34.0); Mean Corpuscular Volume 85.8 fl (80-94); Mean Platelet Volume 9.6 fL (7.4-10.4); Monocytes # 1.1 10^3/uL (0.2-0.9); Monocytes % 16.1 %; Neutrophils # 3.78 10^3/uL (1.8-7.7); Neutrophils % 55.2 %; Nucleated Red Blood Cells % 0 %; Platelet Count 202 10^3/cmm (130-400); Red Blood Count 5.37 10^6/uL (4.1-5.3); White Blood Count 6.9 10^3/uL (4.0-10.0)
[2022-10-26 01:24] LABS: Troponin(5th) Baseline 13 ng/L (0-15)
[2022-10-26 01:25] LABS: Alanine Aminotransferase 28 U/L (0-41); Albumin Level 3.8 g/dL (3.5-5.2); Alkaline Phosphatase 62 U/L (40-130); Anion Gap 14.8 (5-19); Aspartate Amino Transferase 20 U/L (0-40); Blood Urea Nitrogen 18 mg/dL (8-23); Calcium 9.5 mg/dL (8.5-10.5); Carbon Dioxide 25 mmol/L (22-29); Chloride 100 mmol/L (98-107); Creatinine Clr Calc Pharmacy 53.6937; Glucose 119 mg/dL (65-115); Osmolality Calculated 285 mOsm/kg (285-295); Potassium 3.8 mmol/L (3.5-5.1); Sodium 136 mmol/L (136-145); Total Bilirubin 0.3 mg/dL (0.15-1.2); Total Protein 6.8 g/dL (6.6-8.7)
--- NOTE | 2022-10-26 01:31 | ED_ITS ---
HPI - COVID General: Chief Complaint: COVID symptoms Stated Complaint: Chest Pains Time Seen by Provider: 10/26/22 01:31 History of Present Illness: 82-year-old male patient comes in today for complaints of cough and chest discomfort with cough. Patient tested positive for COVID 19 today. Patient appears nontoxic. Patient is alert and oriented. Patient appears in no pain. Patient does have a history of hypertension, GERD, hyperlipidemia, and hypothyroidism. COVID 19 common symptoms: positive productive cough; negative fever(s) COVID Results: SARS-CoV-2 RNA (RT-PCR) Not detected (NOT DETECTED) 08/03/21 1 1:40 Review of Systems Const: Denies: fever(s) Resp: Reports: productive cough [facility] ED PFSH: Social History (Updated 10/10/21 @ 08:21 by Yamilex Gardiner LPN) Smoking and tobacco status: never smoked Alcohol intake: never History of recent travel: No Physical Exam Const: COMMON NORMALS: alert HENMT: COMMON NORMALS: normocephalic HEAD & SCALP: normocephalic Neck/C-Spine: COMMON NORMALS: full ROM Chest: COMMONS NORMALS: normal inspection of the chest Resp: COMMON NORMALS: normal respiratory effort and clear to auscultation bilaterally AUSCULTATION: clear to auscultation bilaterally Cardio: COMMON NORMALS: regular rate and regular rhythm RATE: regular rate RHYTHM: regular rhythm Extremity: COMMON NORMALS: no pedal edema Neuro: SENSORIUM/ORIENTATION: Yes alert Skin: COMMON NORMALS: turgor normal GENERAL SKIN EXAM: turgor normal Course Vital Signs: Vital signs: Vital Signs Temperature 98.3 F 10/25/22 22:33 Pulse Rate 70 10/26/22 01:37 Respiratory Rate 18 10/26/22 01:37 Blood Pressure 156/81 10/26/22 01:37 Pulse Oximetry 97 10/26/22 01:39 Oxygen Delivery Me thod 10/26/22 01:39 MDM - COVID Medical Decision Making 82-year-old male comes in today for evaluation of a positive COVID 19 test at home. On exam lungs are clear to auscultation. Skin is warm and dry. Abdomen soft and nontender. No edema is noted in the extremities. Differential diagnosis includes but not limited to COVID-19, pneumonia, bronchitis, upper respiratory infection. Laboratory values were unremarkable. Chest x-ray was normal. Believe the patient has COVID-19 and will recommend patient for paxlovid therapy. Patient was given 10 mg of dexamethasone x1 for cough and chest discomfort. Patient reported understanding of care plan and need for use of medication and quarantine and follow-up. Lab Data 10/26/22 01:00 10/26/22 00:39 Radiology Impressions Chest X-Ray 10/25/22 22:27 IMPRESSION: No acute findings. Laboratory Results WBC 6.9 10^3/uL (4.0-10.0) 10/26/22 01:00 RBC 5.37 10^6/uL (4.1-5.3) H 10/26/22 01:00 Hgb 15.3 g/dL (11.7-16.6) 10/26/22 01:00 Hct 46.1 % (42.0-52.0) 10/26/22 01:00 MCV 85.8 fl (80-94) 10/26/22 01:00 MCH 28.5 pg (28.0-34.0) 10/26/22 01:00 MCHC 33.2 g/dL (30.0-36.0) 10/26/22 01:00 RDW 16.0 % (12.1-15.1) H 10/26/22 01:00 Plt Count 202 10^3/cmm (130-400) 10/26/22 01:00 MPV 9.6 fL (7.4-10.4) 10/26/22 01:00 Neut % (Auto) 55.2 % 10/26/22 01:00 Lymph % (Auto) 21.6 % 10/26/22 01:00 [place] % (Auto) 16.1 % 10/26/22 01:00 Eos % (Auto) 6.0 % 10/26/22 01:00 Baso % (Auto) 0.7 % 10/26/22 01:00 Neut # (Auto) 3.78 10^3/uL (1.8-7.7) 10/26/22 01:00 Lymph # (Auto) 1.5 10^3/uL (0.8-4.8) 10/26/22 01:00 [place] # (Auto) 1.1 10^3/uL (0.2-0.9) H 10/26/22 01:00 Eos # (Auto) 0.4 10^3/uL (0.0-0.8) 10/26/22 01:00 Baso # (Auto) 0.1 10^3/uL (0.0-0.1) 10/26/22 01:00 Nucleated RBC % (auto) 0 % 10/26/22 01:00 Nucleated RBCs # 0.0 /100WBC 10/26/22 01:00 PT 13.00 SECONDS (12.1-14.9) 10/26/22 01:00 INR 0.95 (0.8-1.2) 10/26/22 01:00 Sodium 136 mmol/L (136-145) 10/26/22 00:39 Potassium 3.8 mmol/L (3.5-5.1) 10/26/22 00:39 Chloride 100 mmol/L (98-107) 10/26/22 00:39 Carbon Dioxide 25 mmol/L (22-29) 10/26/22 00:39 Anion Gap 14.8 (5-19) 10/26/22 00:39 BUN 18 mg/dL (8-23) 10/26/22 00:39 Creatinine 1.1 mg/dL (0.7-1.2) 10/26/22 00:39 GFR Calculation Not Reportable 10/26/22 00:39 Glucose 119 mg/dL (65-115) H 10/26/22 00:39 Calculated Osmolality 285 mOsm/kg (285-295) 10/26/22 00:39 Calcium 9.5 mg/dL (8.5-10.5) 10/26/22 00:39 Total Bilirubin 0.3 mg/dL (0.15-1.2) 10/26/22 00:39 AST 20 U/L (0-40) 10/26/22 00:39 ALT 28 U/L (0-41) 10/26/22 00:39 Alkaline Phosphatase 62 U/L (40-130) 10/26/22 00:39 Troponin T Baseline 13 ng/L (0-15) 10/26/22 00:39 Total Protein 6.8 g/dL (6.6-8.7) 10/26/22 00:39 Albumin 3.8 g/dL (3.5-5.2) 10/26/22 00:39 Globulin 3.0 g/dL (1.3-4.6) 10/26/22 00:39 SARS-CoV-2 RNA (RT-PCR) Not detected (NOT DETECTED) 08/03/21 1 1:40 Discharge Plan Discharge Patient Disposition: Home Clinical Impression: COVID-19 Condition: Stable Prescriptions: New Paxlovid (EUA) 300 mg (150 mg x 2)-100 mg tablets,dose pack See Rx Instructions .ROUTE .COMPLEX Qty: 30 0RF Rx Instructions: take TWO 150 mg tablets of nirmatrelvir with ONE 100 mg tablet of ritonavir twice daily for 5 days No Action atorvastatin [Lipitor] 40 mg tablet 40 mg PO DAILY Qty: 30 3RF losartan 50 mg tablet 50 mg PO DAILY garlic 100 mg Tablet 100 mg PO DAILY Glucosamine 500 mg Tablet 500 mg PO DAILY allopurinol 100 mg tablet 100 mg PO DAILY omeprazole 40 mg capsule,delayed release(DR/EC) 40 mg PO DAILY Euthyrox 88 mcg tablet 88 mcg PO DAILY hydrochlorothiazide 25 mg tablet 25 mg PO DAILY Vitamin B-12 25 mcg Tablet 25 mcg PO EVERY OTHER DAY Tart Oneal 39-228-03-75-20 mg Capsule 1 cap PO DAILY coenzyme Q10 50 mg Tablet 50 mg PO DAILY aspirin 81 mg tablet,delayed release (DR/EC) 81 mg PO DAILY Qty: 30 0RF Discharge Orders: Discharge ED (Routine); Ordered 10/26/22 Ordered By: Job Rapp Referrals: Jose Velasquez DO [Primary Care Provider] - Discharge Diet: Usual diet Discharge Activity: Increase activity as tolerated Activity Restrictions/Additional Instructions: Have prescription of paxlovid filled at your pharmacy or the outpatient pharmacy at the hospital. Take it as prescribed. Drink plenty of fluids and use acetaminophen and ibuprofen for pain. Follow-up with primary care as needed. Return to ER for worsening symptoms such as increasing shortness of breath, low oxygen level less than 90%, severe chest pain, or new concerns. Coding Level of Care Code ED Shift Supervisor Rn for Joanie Peralta
[2022-10-26 01:32] LABS: INR 0.95 (0.8-1.2)
[2022-10-26 01:37] VITALS: BP 156/81; PULSE 70; RESP 18; O2SAT 97
[2022-10-26 01:39] VITALS: O2SAT 97
[2022-10-26] MEDS: dexamethasone 10 mg/mL INJ IM (01:44)
[2022-10-26 01:50] VITALS: BP 156/81; PULSE 69; RESP 18; O2SAT 94
== END 2022-10-26 01:51 | disposition home or self-care (01) ==
PROVIDERS: Emergency Medicine; Emergency Provider Nurse Practitioner Family; PCP Electrodiagnostic Medicine
DX: U07.1 COVID-19 (principal); Z79.82 Long term (current) use of aspirin
CPT/HCPCS: 71045; 80053; 84484; 85025; 85610; 93005; 96372; 99285; J1100

== ENCOUNTER 2023-04-29 15:28 | Outpatient (CLI) | payer MEDICARE, OTHER, SELFPAY ==
--- NOTE | 2023-04-29 16:15 | XRR_ITS ---
PROCEDURE INFORMATION: Exam: XR Chest Exam date and time: 04/29/2023 4:18 PM Age: 83 years old Clinical indication: Condition or disease; Other: Glossodynia TECHNIQUE: Imaging protocol: Radiologic exam of the chest. Views: 2 views. COMPARISON: CR (CHEST, ) 10/25/2022 10:47 PM FINDINGS: Lungs: Unremarkable. No consolidation. Pleural spaces: Unremarkable. No pleural effusion. No pneumothorax. Heart/Mediastinum: Unremarkable. No cardiomegaly. Vasculature: Arteriosclerosis of the thoracic aorta. Bones/joints: Spondylotic change within the visualized thoracolumbar spine. Other findings: No significant change from prior exam. XR/XR chest 2V* [id number] IMPRESSION: No acute cardiopulmonary abnormality.
[2023-04-30 17:30] LABS: Immunoglobulin E 121 kU/L (<OR=114)
[2023-04-30 18:09] LABS: Alternaria Alternata (M6) Ige <0.10 kU/L; Alternaria Class 0; Aspergillus fumigatus <0.10 kU/L; Aspergillus fumigatus Class 0; Bermuda Class 0; Bermuda Grass (G2) Ige <0.10 kU/L; Cat Dander (E1) Ige <0.10 kU/L; Cat Dander Class 0; Cladosporium herbarum <0.10 kU/L; Cladosporium herbarum Class 0; Cockroach <0.10 kU/L; Cockroach Class 0; Common Ragweed (Short) (W1) Ig <0.10 kU/L; Cottonwood <0.10 kU/L; Cottonwood Class 0; D. Farinae Class 0; Dermatophagoides Class 0; Dermatophagoides Farinae (D2) <0.10 kU/L; Dermatophagoides Pteronyssinus <0.10 kU/L; Dog Dander (E5) Ige <0.10 kU/L; Dog Dander Class 0; Elm (T8) Ige <0.10 kU/L; Elm Class 0; Maple (Box Elder) (T1) Ige <0.10 kU/L; Maple Class 0; Maple leaf sycamore Tree <0.10 kU/L; Maple leaf sycamore Tree Class 0; Mountain cedar <0.10 kU/L; Mountain cedar Class 0; Mouse Urine Proteins <0.10 kU/L; Mouse Urine Proteins Class 0; Oak (T7) Ige <0.10 kU/L; Oak Class 0; Pecan/Hickory Tree <0.10 kU/L; Pecan/Hickory Tree Class 0; Penicillium Class 0; Penicillium Notatum (M1) Ige <0.10 kU/L; Ragweeed Class 0; Rough Marsh Elder (W16) Ige <0.10 kU/L; Rough Marsh Elder Class 0; Rough pigweed <0.10 kU/L; Rough pigweed Class 0; Russian Thistle (W11) IgE <0.10 kU/L; Russian Thistle Class 0; Timothy Grass (G6) Ige <0.10 kU/L; Timothy Grass Class 0; Walnut Tree <0.10 kU/L; Walnut Tree Class 0; White Ash Tree <0.10 kU/L; White Ash Tree Class 0; White Mulberry <0.10 kU/L; White Mulberry Class 0
== END 2023-04-29 15:29 | disposition home or self-care (01) ==
LOC: LAB 15:40
PROVIDERS: PCP Electrodiagnostic Medicine; Visit Provider Specialist
DX: K14.6 Glossodynia (principal); Z01.89 Encounter for other specified special examinations
CPT/HCPCS: 71046; 86003

== ENCOUNTER 2023-05-07 06:57 | Outpatient (CLI) | payer MEDICARE, OTHER, SELFPAY ==
[2023-05-07 07:37] VITALS: PULSE 60; RESP 18; O2SAT 98
[2023-05-07] MEDS: albuterol 2.5 mg/3 mL Neb INHALATION (07:37)
[2023-05-07 07:42] VITALS: PULSE 76
== END 2023-05-07 06:58 | disposition home or self-care (01) ==
LOC: RT 07:00
PROVIDERS: PCP Electrodiagnostic Medicine; Visit Provider Specialist
DX: K14.6 Glossodynia (principal); R94.2 Abnormal results of pulmonary function studies
CPT/HCPCS: 94060; 94726; 94729; J7613

== ENCOUNTER 2023-06-02 08:29 | Outpatient (CLI) | payer MEDICARE, OTHER, SELFPAY ==
--- NOTE | 2023-06-02 08:41 | CT_ITS ---
WS: [id number] CT NECK TECHNIQUE: Contrast-enhanced CT of the neck with coronal and sagittal reformatted images. CLINICAL INFORMATION: GLOSSODYNIA COMPARISON: None. DLP: 193.[address] scans at [facility] use at least one of these dose optimization techniques: automated e xposure control; mA and/or kV adjustment per patient size (includes targeted exams where dose is matc hed to clinical indication); or iterative reconstruction. FINDINGS: Dental artifact degrades some images at the tongue base. Parotid glands are normal. Inciden uday intraparotid lymph nodes. Normal posterior nasopharynx. Normal parapharyngeal fat. No evidence of supraglottic or glottic mass. Normal vallecula and piriform sinuses. No evidence of glottic or subgl ottic mass. Hazy atelectasis in the lung apices. No cervical lymphadenopathy. Advanced spondylitic changes cervical spine. Hypertrophic changes with disc osteophyte complexes at C 4-C7 with moderate central canal stenosis. Moderate severe stenosis at C6-C7. Multilevel bony foramin al narrowing.Pannus formation at the C1-C2 articulation. CT/CT neck w con* [id number] IMPRESSION: 1. Salivary glands are normal. 2. No cervical lymphadenopathy. 3. No evidence of supraglottic or glottic mass. 4. Advanced spondylitic changes cervical spine with straightening of the norman l cervical lordosis. Disc osteophyte complexes worse at C4-C7 with anterior hyp ertrophic changes. 5. Moderate central canal stenosis at these levels worse at C6-C7 with moderat e to severe stenosis. This could be further evaluated with cervical spine MRI.
[2023-06-02 09:24] LABS: Blood Urea Nitrogen 21 mg/dL (8-23)
[2023-06-02] MEDS: iohexol 350 mg/mL 500 mL Btl (per mL) IV (09:28)
== END 2023-06-02 08:30 | disposition home or self-care (01) ==
PROVIDERS: Radiology Neuroradiology; PCP Electrodiagnostic Medicine; Visit Provider Specialist
DX: K14.6 Glossodynia (principal); M25.78 Osteophyte, vertebrae; M48.02 Spinal stenosis, cervical region; M47.812 Spondylosis without myelopathy or radiculopathy, cervical region
CPT/HCPCS: 70491; 82565; 84520; Q9967

== ENCOUNTER → 2024-01-15 11:03 | Outpatient (BNVA) | payer MEDICARE, OTHER, SELFPAY | PROVIDERS: PCP Electrodiagnostic Medicine; Visit Provider Internal Medicine Pulmonary Disease | DX: R05.3 Chronic cough (principal); J22 Unspecified acute lower respiratory infection | CPT/HCPCS: 71046; 87015; 87070; 87116; 87205; 87206; 87801; 99205 ==

== ENCOUNTER → 2024-02-17 12:37 | Outpatient (BNVA) | payer MEDICARE, OTHER, SELFPAY | PROVIDERS: PCP Electrodiagnostic Medicine; Visit Provider Internal Medicine Pulmonary Disease | DX: R05.3 Chronic cough (principal); R91.8 Other nonspecific abnormal finding of lung field | CPT/HCPCS: 99214 ==

== ENCOUNTER → 2024-04-22 13:13 | Outpatient (BNVA) | payer MEDICARE, SELFPAY | PROVIDERS: PCP Electrodiagnostic Medicine; Visit Provider Internal Medicine Pulmonary Disease | DX: R05.3 Chronic cough (principal); R91.8 Other nonspecific abnormal finding of lung field | CPT/HCPCS: 99214 ==

== ENCOUNTER 2024-07-26 12:06 | Outpatient (CLI) | payer MEDICARE, OTHER, SELFPAY ==
--- NOTE | 2024-07-26 12:10 | MR_ITS ---
WS: [id number] MRI RIGHT WRIST WITH AND WITHOUT CONTRAST. COMPARISON: None Multiplanar, multisequence imaging is performed with and without contrast. MultiHance 16 mL. There is a very large smooth cystic mass along the volar surface of the wrist and hand. The cystic ma ss extends over a length of approximately 10.8 cm and transversely by 4.2 cm. Cystic mass extends fro m the mid metatarsals to the proximal radius. There are a few thin septations and nodules present. Th ere is mild peripheral enhancement. Increased fluid in the distal radial ulnar joint. There is bone upon bone involving the proximal carp al row. Marked widening of the scapholunate interval up to 6.7 mm. Subchondral cystic changes in the capitate. Avulsion of the ulnar styloid. Loss of the normal arch of the carpal rows. There is a parti al subluxation involving the radiocarpal articulation with the radius being posteriorly subluxed with respect to the carpal bones. Marked anterior displacement of the lunate. Extensive soft tissue thick ening along the distal ulna. Well-circumscribed cystic mass measuring 7 mm associated with the trapez ium may be at additional ganglion. No enhancing solid mass is identified. MR/MR wrist RT wo/w con [id number] IMPRESSION: 1. Numerous abnormalities are noted at the RIGHT wrist. Extensive degenerative changes in the bones of the wrist and soft tissues. 2. Very large cystic mass with peripheral enhancement measures 10.8 x 4.2 cm c entered along the volar surface of the wrist extending into the hand and proxim al forearm consistent with a ganglion. 3. Loss of the normal arcs of the carpal rows consistent with carpal dislocati ons. 4. Abnormal position of the lunate. 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 5. Widening scapholunate interval consistent with a torn scapholunate ligament . 6. TFCC tear. 7. Probable ganglion associated with the trapezium. 8. Marked bone upon bone of the proximal radiocarpal joint. 9. Subchondral cystic changes at the capitate.
[2024-07-26] MEDS: gadobenate dimeglumine 20 mL vial 16 ML IV (13:19)
== END 2024-07-26 12:07 | disposition home or self-care (01) ==
LOC: RAD 12:07
PROVIDERS: PCP Electrodiagnostic Medicine; Visit Provider Electrodiagnostic Medicine
DX: M67.431 Ganglion, right wrist (principal); M19.031 Primary osteoarthritis, right wrist; S63.094A Other dislocation of right wrist and hand, initial encounter; S63.391A Traumatic rupture of other ligament of right wrist, initial encounter; M24.131 Other articular cartilage disorders, right wrist; M85.641 Other cyst of bone, right hand
CPT/HCPCS: 73223; A9577

== ENCOUNTER → 2025-07-19 08:25 | Outpatient (BNVA) | payer MEDICARE, OTHER, SELFPAY | PROVIDERS: PCP Electrodiagnostic Medicine; Visit Provider Dermatology | DX: L82.1 Other seborrheic keratosis (principal); L21.8 Other seborrheic dermatitis; L71.8 Other rosacea; L73.9 Follicular disorder, unspecified; D18.01 Hemangioma of skin and subcutaneous tissue; L57.8 Other skin changes due to chronic exposure to nonionizing radiation; L73.8 Other specified follicular disorders; L81.3 Cafe au lait spots; L57.0 Actinic keratosis | CPT/HCPCS: 17000; 99204 ==

== ENCOUNTER → 2025-08-25 09:40 | Outpatient (BNVA) | payer MEDICARE, OTHER, SELFPAY | PROVIDERS: PCP Electrodiagnostic Medicine; Visit Provider Internal Medicine | DX: J44.89 Other specified chronic obstructive pulmonary disease (principal); J45.50 Severe persistent asthma, uncomplicated; J30.2 Other seasonal allergic rhinitis; T78.40XA Allergy, unspecified, initial encounter; X58.XXXA Exposure to other specified factors, initial encounter; J44.9 Chronic obstructive pulmonary disease, unspecified | CPT/HCPCS: 99214; Q3014 ==

== ENCOUNTER → 2025-10-04 10:31 | Outpatient (BNVA) | payer MEDICARE, OTHER, SELFPAY | PROVIDERS: PCP Electrodiagnostic Medicine; Visit Provider Internal Medicine | DX: J44.89 Other specified chronic obstructive pulmonary disease (principal); J45.50 Severe persistent asthma, uncomplicated; J82.83 Eosinophilic asthma; J30.9 Allergic rhinitis, unspecified; T78.40XA Allergy, unspecified, initial encounter; X58.XXXA Exposure to other specified factors, initial encounter; J44.9 Chronic obstructive pulmonary disease, unspecified | CPT/HCPCS: 99214; Q3014 ==

== ENCOUNTER 2025-10-04 14:50 | Outpatient (CLI) | payer MEDICARE, OTHER, SELFPAY | END 2025-10-04 14:51 | disposition home or self-care (01) | LOC: RAD 10-07 06:31 | PROVIDERS: PCP Electrodiagnostic Medicine; Visit Provider Internal Medicine | DX: J44.9 Chronic obstructive pulmonary disease, unspecified (principal); T78.40XA Allergy, unspecified, initial encounter; X58.XXXA Exposure to other specified factors, initial encounter; D72.829 Elevated white blood cell count, unspecified; Z85.46 Personal history of malignant neoplasm of prostate; L90.5 Scar conditions and fibrosis of skin | CPT/HCPCS: 36415; 70210; 71046; 82103; 85025; 86003 ==